=== PATIENT | female | born 1995 | race Caucasian/White ===

== ENCOUNTER 2020-11-17 08:53 | Emergency (ER) | payer OTHER ==
[2020-11-17 09:26] VITALS: BP 148/95; PULSE 85; TEMP 99.2; BMI 22.1
== END 2020-11-17 10:14 | disposition home or self-care (01) ==
LOC: FER 08:53
DX: R07.9 Chest pain, unspecified (principal)
CPT/HCPCS: 71046-TC-FY; 93005; 99284-25